=== PATIENT | female | born 1955 | race Caucasian/White ===

== ENCOUNTER → 2024-08-07 | Outpatient (CLI) | payer OTHER ==
--- NOTE | 2024-08-07 16:49 | HMCIMG ---
LUMBAR SPINE 2-3VWS HISTORY: Radiculopathy COMPARISON: None FINDINGS: Images were obtained. There is straightening of normal lordotic curvature which may be related to muscle spasm or positioning. No loss of vertebral height is seen. No fracture or dislocation is seen. Degenerative changes are seen. There are degenerative changes with lumbar spine spondylosis. IMPRESSION: 1. No fracture is seen.
--- NOTE | 2024-08-07 16:49 | HMCIMG ---
SACROILIAC JTS 3+VWS HISTORY: Radiculopathy COMPARISON: None TECHNIQUE: 4 images of sacroiliac joints were obtained. FINDINGS: Bilateral sacroiliac joint space narrowing are seen. There is no acute displaced fracture or dislocation. Degenerative changes are seen. IMPRESSION: 1. Findings as described above.
--- NOTE | 2024-08-07 16:51 | HMCIMG ---
ANKLE COMP 3+VWS ERICA REASON: Pain in left ankle and joints of left foot; Pain in right ankle and joints. COMPARISON: None TECHNIQUE: 6 images of bilateral ankle were obtained. FINDINGS: Soft tissue swelling is seen. There are bilateral calcaneal spur. Calcifications are seen at the insertion site of the Achilles tendon bilaterally consistent with enthesopathy. There is no acute displaced fracture or dislocation. IMPRESSION: Findings as described above.
== END | disposition home or self-care (01) ==
LOC: RAH 15:44 → EDBD 15:44
PROVIDERS: ATTEND Internal Medicine
DX: M47.26 Other spondylosis with radiculopathy, lumbar region (principal); M77.32 Calcaneal spur, left foot; M77.31 Calcaneal spur, right foot; M65.872 Other synovitis and tenosynovitis, left ankle and foot; M65.871 Other synovitis and tenosynovitis, right ankle and foot; M47.818 Spondylosis without myelopathy or radiculopathy, sacral and sacrococcygeal region; M48.08 Spinal stenosis, sacral and sacrococcygeal region; M25.572 Pain in left ankle and joints of left foot; M25.571 Pain in right ankle and joints of right foot; M16.10 Unilateral primary osteoarthritis, unspecified hip
CPT/HCPCS: 72100; 72202

== ENCOUNTER → 2024-10-30 | Outpatient (CLI) | payer MEDICARE ==
--- NOTE | 2024-10-31 10:00 | HMCIMG ---
MAMMO SCREENING BILATERAL HISTORY: Screening mammogram. COMPARISON: 10/17/2023 TECHNIQUE: Bilateral screening mammogram with CAD was performed with craniocaudal and mediolateral oblique projections. FINDINGS: There are scattered areas of fibroglandular density. There is no evidence of a dominant mass, or suspicious microcalcification. There is no evidence of nipple retraction or skin thickening. IMPRESSION: 1. Stable mammogram. Patient was entered into a reminder system with a target due date for their next mammogram. BI-RADS: CATEGORY 2: BENIGN FINDINGS Recommend monthly self breast exam as well as annual clinical examination. A negative x-ray should not delay biopsy if a dominant or clinically suspicious mass is present, since 8-10% of cancers are not identified by mammography. Dense breasts particularly, may obscure an underlying neoplasm. Some of these may be detected clinically and therefore, clinical examination is an essential part of breast evaluation.
== END | disposition home or self-care (01) ==
LOC: RAH 07:57
PROVIDERS: ATTEND Hospitalist
DX: Z12.31 Encounter for screening mammogram for malignant neoplasm of breast (principal); R92.323 Mammographic fibroglandular density, bilateral breasts
CPT/HCPCS: 77067

== ENCOUNTER → 2024-12-06 | Outpatient (CLI) | payer MEDICARE ==
[~2024-12-06] MED LIST: GADOTERATE MEGLUMINE 10 MMOL/20 ML VIAL IV ONE
--- NOTE | 2024-12-06 17:05 | HMCIMG ---
MR SPINAL CANAL, THORACIC WWO HISTORY: Back pain COMPARISON: None TECHNIQUE: MRI of the thoracic spine was performed utilizing multiple pulse sequences in axial, coronal and sagittal plane. Patient was given 18 cc of clear scan through intravenous route. FINDINGS: Hyperintense focus is seen involving T12 vertebral body may be related to bony lesion. If needed, bone scan may be helpful. There is no focal disc herniation or neural foraminal stenosis. There are degenerative changes with spondylosis. No abnormal signal intensity is seen of the visualized bony structure. No loss of vertebral height is seen. Degenerative disc signals are present at all thoracic spine levels. The thoracic cord is of normal signal intensity without cord compression or impingement. There are motion artifacts degrading the image quality. IMPRESSION: 1. Hyperintense focus is seen involving T12 vertebral body may be related to bony lesion. If needed, bone scan may be helpful. There is no focal disc herniation or neural foraminal stenosis. There are degenerative changes with spondylosis.
== END | disposition home or self-care (01) ==
LOC: RAH 14:43
PROVIDERS: ATTEND Hospitalist
DX: M47.814 Spondylosis without myelopathy or radiculopathy, thoracic region (principal); M54.9 Dorsalgia, unspecified; M05.9 Rheumatoid arthritis with rheumatoid factor, unspecified
CPT/HCPCS: 72157; A9575

== ENCOUNTER → 2024-12-31 | Outpatient (CLI) | payer MEDICARE ==
--- NOTE | 2025-01-01 02:02 | HMCIMG ---
NM BONE SCAN WHOLE BODY REASON: T12 lesion seen on MRI done here. COMPARISON: MRI from 12/06/2024 TECHNIQUE: Bone scan was performed with 23 mCi of technetium MDP through intravenous route. Specific attention is given to the T12 level. FINDINGS: No definite area of increased or decreased activity is noted of T12. Therefore MRI findings is indeterminate. Six-month follow-up study may be helpful with MRI. Degenerative changes are seen of the shoulders, knees, ankles and wrists with increase activities. No scintigraphic evidence of bone metastases is seen. IMPRESSION: DJD. No scintigraphic evidence of bone metastases.
== END | disposition home or self-care (01) ==
LOC: RAH 13:36
PROVIDERS: ATTEND Hospitalist
DX: M17.0 Bilateral primary osteoarthritis of knee (principal); M19.012 Primary osteoarthritis, left shoulder; M19.011 Primary osteoarthritis, right shoulder; M19.072 Primary osteoarthritis, left ankle and foot; M19.071 Primary osteoarthritis, right ankle and foot; M19.032 Primary osteoarthritis, left wrist; M19.031 Primary osteoarthritis, right wrist; M47.816 Spondylosis without myelopathy or radiculopathy, lumbar region; M48.8X4 Other specified spondylopathies, thoracic region; R09.89 Other specified symptoms and signs involving the circulatory and respiratory systems
CPT/HCPCS: 78306; A9503

== ENCOUNTER → 2025-07-15 | Outpatient (CLI) | payer MEDICARE ==
[2025-07-15 09:31] LABS: IMMATURE GRANULOCYTE ABSOLUTE 0.02 K/uL (0-1); NUCLEATED RED BLOOD CELLS 0.0 % (0.0-0.19); PLATELET COUNT (AUTO) 236 K/uL (130-400); RED BLOOD CELL COUNT(AUTO) 4.89 MIL/uL (4.00-5.50); RED CELL DISTRIBUTION WIDTH 13.8 % (11.0-15.5); WHITE BLOOD COUNT (AUTO) 4.8 K/uL (4.8-10.8)
[2025-07-15 10:11] LABS: ASPARTATE AMINOTRANSFERASE 23.0 U/L (10-37); CREATININE 0.9 mg/dL (0.5-1.0); GLOMERULAR FILTR. RATE CALC 68.0 mL/min (>90); GLUCOSE,RANDOM 101.0 mg/dL (70-105); LDL DIRECT 85.0 mg/dL (0-99); SODIUM SERUM 137.0 mmol/L (136-145); TOTAL PROTEIN, SERUM 8.1 g/dL (6.0-8.3); UREA NITROGEN, BLOOD 24.0 mg/dL (7-18)
== END | disposition home or self-care (01) ==
LOC: LAB 08:45
PROVIDERS: ATTEND Hospitalist
DX: Z13.220 Encounter for screening for lipoid disorders (principal); Z13.29 Encounter for screening for other suspected endocrine disorder; E11.69 Type 2 diabetes mellitus with other specified complication; E55.9 Vitamin D deficiency, unspecified; Z79.899 Other long term (current) drug therapy
CPT/HCPCS: 36415; 80053; 80061; 82306; 82607; 83036; 84443; 85025